=== PATIENT | female | born 1975 ===

== ENCOUNTER 2017-04-07 12:35 | Emergency (ER) | payer OTHER, BC ==
[~2017-04-07] VITALS: Ht 165.1 cm; Wt 72.6 kg
[~2017-04-07 12:35] MED LIST: THYROID MEDICINE PO
[2017-04-07] MEDS ORDERED: SUMA100T PO (12:48)
[2017-04-07] MEDS ORDERED: IBUP-1096 PO (12:48)
[2017-04-07] MEDS ORDERED: ACET-2605 PO (12:48)
[2017-04-07] MEDS ORDERED: KETOROLAC TROMETHAMINE 15 MG INJ IVP ONE (13:00)
[2017-04-07] MEDS ORDERED: IV NORMAL SALINE 500 ML BAG IV ONE (13:00)
[2017-04-07] MEDS ORDERED: METOCLOPRAMIDE HCL 10 MG/2 ML VIAL IV ONE (13:00)
[2017-04-07] MEDS ORDERED: diphenhydrAMINE 50 MG/1 ML VIAL IV ONE (13:00)
[2017-04-07] MEDS ORDERED: METOCLOPRAMIDE HCL 10 MG/2 ML VIAL ONE (13:08)
--- NOTE | 2017-04-07 13:08 | NUR ---
MSE DONE BY DR THOMPSON AT BEDSIDE.
[2017-04-07] MEDS ORDERED: diphenhydrAMINE 50 MG/1 ML VIAL ONE (13:09)
[2017-04-07] MEDS ORDERED: KETOROLAC TROMETHAMINE 15 MG INJ ONE (13:09)
--- NOTE | 2017-04-07 13:14 | NUR ---
Pt back from CT.
--- NOTE | 2017-04-07 13:22 | NUR ---
Pt c/o migraine RYAN x 1 week with sensitivity to light and sound, dizziness and n/v. Pt denies CP, SOB, no other complaints, no distress noted.
[2017-04-07] MEDS ORDERED: HYDROMORPHONE 1 MG/1 ML DISP.SYRIN IV ONE (13:45)
--- NOTE | 2017-04-07 13:47 | NUR ---
Endorsed pt to [facility].
[2017-04-07] MEDS ORDERED: HYDROMORPHONE 1 MG/1 ML DISP.SYRIN ONE (13:53)
--- NOTE | 2017-04-07 14:13 | NUR ---
luis vergara. notified
--- NOTE | 2017-04-07 14:27 | NUR ---
medicated for nausea
[2017-04-07] MEDS ORDERED: ONDANSETRON IV *ER 4 MG/2 ML VIAL IV ONE (14:30)
[2017-04-07] MEDS ORDERED: ONDANSETRON 4 MG/2 ML VIAL ONE (14:34)
[2017-04-07 14:45] VITALS: BP 114/75
--- NOTE | 2017-04-07 14:47 | NUR ---
feeling better. IV saline lock removed. homegoing instructions and prescription given. ptient call in uber to drive her home
== END 2017-04-07 14:48 | disposition home or self-care (01) ==
LOC: ER 12:40
DX: R51 Headache (principal)
CPT/HCPCS: 70450; A4663; J1170; J1200; J1885; J2405; J2765; J7040